=== PATIENT | male | born 1950 | race Hispanic/Latino ===

== ENCOUNTER 2022-05-25 17:48 | Emergency (ER) | payer SELFPAY ==
[2022-05-25] MEDS ORDERED: LIDOCAINE 1% W/EPI 1:100,000 10 ML VIAL ONE (18:21)
[2022-05-25] MEDS ORDERED: TETANUS & DIPHTHERIA TOX,ADULT 0.5 ML VIAL ONE (18:23)
--- NOTE | 2022-05-25 19:18 | ER ---
Nurse's Notes [facility] Name: Ariel Colunga Age: 71 yrs Sex: Male : 1950 Arrival Date: 05/25/2022 Time: 17:49 Bed 5 Private MD: Diagnosis: Laceration with foreign body of other part of head, initial encounter Presentation: 05/25 17:52 Chief complaint: left eyebrow laceration after running into trash can. Bleeding hb controlled. Negative LOC. Coronavirus screen: At this time, the client does not indicate any symptoms associated with coronavirus-19. Ebola Screen: No symptoms or risks identified at this time. Risk Assessment: Do you want to hurt yourself or someone else? Patient reports no desire to harm self or others. Onset of symptoms was May 25, 2022. 17:52 Method Of Arrival: Ambulatory hb 17:52 Acuity: JESSICA 4 hb 19:00 Complicating Factors: There are no complicating factors for this patient. Initial ke1 Sepsis Screen: Does the patient meet any 2 criteria? No. Patient's initial sepsis screen is negative. Does the patient have a suspected source of infection? No. Patient's initial sepsis screen is negative. Historical: - Allergies: 17:53 No Known Allergies; hb - Immunization history:: Adult Immunizations up to date. - Social history:: Smoking status: Patient denies any tobacco usage or history of. Screenin:00 Abuse screen: Denies threats or abuse. Nutritional screening: No deficits noted. ke1 Tuberculosis screening: No symptoms or risk factors identified. Fall Risk None identified. Assessment: 18:04 General: Appears in no apparent distress. comfortable, Behavior is calm, cooperative, mb9 appropriate for age. Pain: Denies pain. Neuro: Level of Consciousness is awake, alert, obeys commands, Oriented to person, place, time, situation, Appropriate for age Gait is steady. Cardiovascular: Heart tones S1 S2 present. Respiratory: Airway is patent Respiratory effort is even, unlabored, Respiratory pattern is regular, symmetrical. GI: Abdomen is round. : No signs and/or symptoms were reported regarding the genitourinary system. Derm: Skin laceration noted above the left eyebrow Skin is dry, Skin is normal, Skin temperature is warm Wound noted. Musculoskeletal: Range of motion: intact in all extremities. Injury Description: Laceration sustained to above left eyebrow is not bleeding. 19:14 Reassessment: report given to ALMA Joshua. mb9 Vital Signs: 17:52 BP 157 / 106; Pulse 96; Resp 16; Temp 98.9; Pulse Ox 100% on R/A; Pain 4/10; hb 19:54 BP 142 / 77; Pulse 90; Resp 19; Temp 98.6; Pulse Ox 99% ; ke1 Alana Coma Score: 18:15 Eye Response: spontaneous(4). Verbal Response: oriented(5). Motor Response: obeys cp commands(6). Total: 15. ED Course: 17:49 Patient arrived in ED. as 17:53 Triage completed. hb 17:53 Arm band placed on. hb 17:55 Cecil Zarco PA is PHCP. cp 17:55 Jose Antonio Galloway MD is Attending Physician. zarina 17:56 Zaina Fung RN is Primary Nurse. mb9 19:00 Bed in low position. Call light in reach. ke1 19:53 wound dressing. ke1 19:54 Patient did not have IV access during this emergency room visit. ke1 Administered Medications: 18:31 Drug: Tetanus Toxoid,Adsorbed 0.5 ml {Tire Stripper: [employer]. Exp: 12/29/2023. Lot mb9 #: [id number]. } Route: IM; Site: right deltoid; 19:48 Follow up: Response: No adverse reaction ke1 19:14 Drug: Lidocaine-Epinephrine -1%: (1:100,000) 10 ml Volume: 20 ml; Route: Infiltration; mb9 Medication: 19:53 VIS not applicable for this client. ke1 Outcome: 19:17 Discharge ordered by . cp 19:54 Discharged to home ambulatory. ke1 19:54 Condition: good 19:54 Discharge instructions given to patient. 19:55 Patient left the ED. ke1 Signatures: Caren Howell Corey, PA PA cp Baxter, Heather, RN RN Chaitanyamesilla valley hospitalTres leung RN RN ke1 Zaina Fung RN RN mb9
--- NOTE | 2022-05-25 19:18 | EDPHYS ---
Physician Documentation [facility] Name: Ariel Colunga Age: 71 yrs Sex: Male : 1950 Arrival Date: 05/25/2022 Time: 17:49 Bed 5 Private MD: ED Physician Jose Antonio Galloway HPI: 05/25 18:15 This 71 yrs old Male presents to ER via Ambulatory with complaints of cp Laceration - eyebrow. 18:15 The patient or guardian reports a laceration, clean. The complaints affect the left cp upper orbital ridge. 18:15 Context of injury: occurred while outside when plastic lid of garbage can accidently cp struck face. No LOC, denies headache and/or pain beside area of laceration. Onset: The symptoms/episode began/occurred just prior to arrival. Associated signs and symptoms: The patient has no apparent associated signs or symptoms. Patient denies use of blood thinners, unsure of last tetanus vaccination. Historical: - Allergies: 17:53 No Known Allergies; hb - Immunization history:: Adult Immunizations up to date. - Social history:: Smoking status: Patient denies any tobacco usage or history of. ROS: 18:20 Skin: Positive for laceration(s), of the left upper orbital ridge. cp 18:20 Constitutional: Negative for body aches, chills, fever, poor PO intake. cp 18:20 Cardiovascular: Negative for chest pain, palpitations. 18:20 Respiratory: Negative for cough, shortness of breath, wheezing. 18:20 Neuro: Negative for altered mental status, dizziness, headache, loss of consciousness, syncope, weakness. 18:20 All other systems are negative. Exam: 18:25 Constitutional: The patient appears in no acute distress, alert, awake, comfortable, cp non-toxic, well developed, well nourished. 18:25 Head/face: Noted is ecchymosis, that is mild, a laceration(s), that is deep, that is linear, of the left upper orbital ridge, swelling, that is mild, Sinus tenderness, is not appreciated. 18:25 Eyes: Pupils: equal, round, and reactive to light and accomodation, Extraocular movements: intact throughout, Conjunctiva: normal, no exudate, no injection, Lids and lashes: appear normal, bilaterally. 18:25 ENT: External ear(s): are unremarkable, Nose: is normal, Mouth: Lips: moist, Oral mucosa: pink and intact, moist, Posterior pharynx: Airway: no evidence of obstruction, patent. 18:25 Neck: C-spine: vertebral tenderness, is not appreciated, crepitus, is not appreciated, ROM/movement: is normal, is supple, without pain, no range of motions limitations. 18:25 Chest/axilla: Inspection: normal, Palpation: is normal, no crepitus, no tenderness. 18:25 Cardiovascular: Rate: normal, Rhythm: regular. 18:25 Respiratory: the patient does not display signs of respiratory distress, Respirations: normal, no use of accessory muscles, no retractions, labored breathing, is not present, Breath sounds: are clear throughout, no decreased breath sounds, no stridor, no wheezing. 18:25 Abdomen/GI: Exam negative for discomfort, distension, guarding, Inspection: abdomen appears normal. 18:25 Back: pain, is absent, ROM is normal. 18:25 Musculoskeletal/extremity: Exam is negative for decreased range of motion, deformity, injury. 18:25 Neuro: Orientation: to person, place \T\ time. Mentation: is normal, Cerebellar function: is grossly normal, Motor: moves all fours, strength is normal, Sensation: is normal, Gait: is steady, at a normal pace, without difficulty. Vital Signs: 17:52 BP 157 / 106; Pulse 96; Resp 16; Temp 98.9; Pulse Ox 100% on R/A; Pain 4/10; hb 19:54 BP 142 / 77; Pulse 90; Resp 19; Temp 98.6; Pulse Ox 99% ; ke1 Alana Coma Score: 18:15 Eye Response: spontaneous(4). Verbal Response: oriented(5). Motor Response: obeys cp commands(6). Total: 15. Laceration: 19:30 Wound Repair of 5.5cm ( 2.2in ) subcutaneous laceration to left upper orbital ridge. cp Linear shaped.. Distal neuro/vascular/tendon intact. Anesthesia: Wound infiltrated with 6 mls of 1% lidocaine w/ Epi. Wound prep: Simple cleansing by nurse. Subcutaneous tissue closed with 3 4-0 Vicryl using interrupted sutures and sterile technique. Skin closed with 11 5-0 Prolene using interrupted sutures and sterile technique. Dressed with Bacitracin. Patient tolerated well. MDM: 17:55 Patient medically screened. cp 18:30 Differential diagnosis: Contusion of Hematoma on Laceration of Intracranial bleed- cp Concussion cerebral contusion. 19:17 Data reviewed: vital signs, nurses notes. cp 19:17 Counseling: I had a detailed discussion with the patient and/or guardian regarding: the cp historical points, exam findings, and any diagnostic results supporting the discharge/admit diagnosis, the need for outpatient follow up, a family practitioner, to return to the emergency department if symptoms worsen or persist or if there are any questions or concerns that arise at home. Response to treatment: the patient's symptoms have markedly improved after treatment, and as a result, I will discharge patient. 05/25 18:03 Order name: Dressing - Wound; Complete Time: 19:48 cp 05/25 18:03 Order name: Gloves, Sterile; Complete Time: 18:06 cp 05/25 18:03 Order name: Setup Suture Tray; Complete Time: 18:06 cp 05/25 19:16 Order name: Wound dressing; Complete Time: 19:48 cp Administered Medications: 18:31 Drug: Tetanus Toxoid,Adsorbed 0.5 ml {[employer] Coordinator: [employer]. Exp: 12/29/2023. Lot mb9 #: [id number]. } Route: IM; Site: right deltoid; 19:48 Follow up: Response: No adverse reaction ke1 19:14 Drug: Lidocaine-Epinephrine -1%: (1:100,000) 10 ml Volume: 20 ml; Route: Infiltration; mb9 Disposition Summary: 05/25/22 19:17 Discharge Ordered Location: Home cp Problem: new cp Symptoms: have improved cp Condition: Stable cp Diagnosis - Laceration with foreign body of other part of head, initial encounter cp Followup: cp - With: Private Physician - When: 1 week - Reason: Staple/Suture removal Discharge Instructions: - Discharge Summary Sheet cp - Facial Laceration cp - Sutured Wound Care cp Forms: - Medication Reconciliation Form cp - Thank You Letter cp - Antibiotic Education cp - Prescription Opioid Use cp Signatures: Cecil Zarco PA PA cp Baxter, Heather, RN RN hb Ebrottie, Kouassi, RN RN ke1 Breneman, Zaina, RN RN mb9
[2022-05-25 20:06] VITALS: BP 142/77; TEMP 98.6; O2SAT 99
== END 2022-05-25 19:55 | disposition home or self-care (01) ==
LOC: ER 17:48
PROC: 0JQ10ZZ Repair Face Subcutaneous Tissue and Fascia, Open Approach (ICD-10-PCS; principal; 2022-05-25)
DX: S01.122A Laceration with foreign body of left eyelid and periocular area, initial encounter (principal); W22.8XXA Striking against or struck by other objects, initial encounter; Y93.89 Activity, other specified; Y92.9 Unspecified place or not applicable; Z23 Encounter for immunization
CPT/HCPCS: 90471; 90714; 99283

== ENCOUNTER 2022-06-03 09:38 | Emergency (ER) | payer SELFPAY ==
--- NOTE | 2022-06-03 09:57 | ER ---
Nurse's Notes [facility] Name: Ariel Colunga Age: 71 yrs Sex: Male : 1950 Arrival Date: 06/03/2022 Time: 09:39 Bed Waiting Private MD: Diagnosis: Encounter for removal of sutures Presentation: 06/03 09:47 Chief complaint: Patient states: "Its been 8-9 days since sutures have been placed" vg1 sutures placed Left eye brow, Site appears to be without redness and swelling. Pt denies pain. Coronavirus screen: Vaccine status: Patient reports receiving the 2nd dose of the covid vaccine. Client denies travel out of the [place] in the last 14 days. Ebola Screen: Patient negative for fever greater than or equal to 101.5 degrees Fahrenheit, and additional compatible Ebola Virus Disease symptoms Patient denies exposure to infectious person. Onset of symptoms was May 26, 2022. 09:47 Method Of Arrival: Ambulatory vg 09:47 Acuity: EJSSICA 5 vg1 09:54 Initial Sepsis Screen: Does the patient meet any 2 criteria? No. Patient's initial vg1 sepsis screen is negative. Does the patient have a suspected source of infection? No. Patient's initial sepsis screen is negative. Risk Assessment: Do you want to hurt yourself or someone else?. Triage Assessment: 09:47 General: Appears in no apparent distress. comfortable, Behavior is calm, cooperative. vg1 Pain: Denies pain. - Immunization history:: Client reports receiving the 2nd dose of the Covid vaccine. Screenin:49 Abuse screen: Denies threats or abuse. Nutritional screening: No deficits noted. vg1 Tuberculosis screening: No symptoms or risk factors identified. Fall Risk No fall in past 12 months (0 pts). No secondary diagnosis (0 pts). No IV (0 pts). Ambulatory Aid- None/Bed Rest/Nurse Assist (0 pts). Gait- Normal/Bed Rest/Wheelchair (0 pts) Mental Status- Oriented to own ability (0 pts). Total Cerda Fall Scale indicates No Risk (0-24 pts). Assessment: 09:49 Reassessment: Monique CHEMICAL PREPARER in triage removing pt sutures. vg1 Vital Signs: 09:51 BP 164 / 73; Pulse 66; Resp 15; Temp 97.7(TE); Pulse Ox 100% ; vg1 ED Course: 09:39 Patient arrived in ED. am2 09:40 [facility] jh7 09:40 Yo Ibanez MD is Attending Physician. jh7 09:47 Arm band placed on. vg1 09:49 Triage completed. vg1 09:49 Patient has correct armband on for positive identification. vg1 09:49 No provider procedures requiring assistance completed. Patient did not have IV access vg1 during this emergency room visit. Administered Medications: No medications were administered Medication: 09:49 VIS not applicable for this client. vg1 Outcome: 09:49 No charge visit due to suture removal. vg1 09:56 Discharge ordered by . jh7 09:58 Discharged to home ambulatory. vg1 09:58 Condition: good 09:58 Discharge instructions given to patient, Instructed on discharge instructions, follow up and referral plans. Demonstrated understanding of instructions, follow-up care. 09:59 Patient left the ED. vg1 Signatures: Olive Patricio am2 Debra Palomino, RN RN vg1 Marcy Amaya FNP FNP [facility]
--- NOTE | 2022-06-03 09:57 | EDPHYS ---
Physician Documentation [facility] Name: Ariel Colunga Age: 71 yrs Sex: Male : 1950 Arrival Date: 06/03/2022 Time: 09:39 Bed Waiting Private MD: ED Physician Yo Ibanez HPI: 06/03 09:50 This 71 yrs old Male presents to ER via Ambulatory with complaints of Suture jh7 Removal. 09:50 The patient has sutures on the face. Previous treatment: The patient was initially jh7 treated 9 day(s) ago. Sutures/jayda progress: The patient has no c/o's. The wound is well-healing with no redness, swelling, discharge, or dehiscence reported. - Immunization history:: Client reports receiving the 2nd dose of the Covid vaccine. ROS: 09:50 Constitutional: Negative for fever, chills, and weight loss, Eyes: Negative for injury, jh7 pain, redness, and discharge, Cardiovascular: Negative for chest pain, palpitations, and edema, Respiratory: Negative for shortness of breath, cough, wheezing, and pleuritic chest pain, MS/Extremity: Negative for injury and deformity, Neuro: Negative for headache, weakness, numbness, tingling, and seizure. 09:50 Skin: Positive for laceration(s), sutures in place. 09:50 All other systems are negative. Exam: 09:50 Constitutional: This is a well developed, well nourished patient who is awake, alert, jh7 and in no acute distress. Cardiovascular: Regular rate and rhythm with a normal S1 and S2. No gallops, murmurs, or rubs. Normal PMI, no JVD. No pulse deficits. Respiratory: Lungs have equal breath sounds bilaterally, clear to auscultation and percussion. No rales, rhonchi or wheezes noted. No increased work of breathing, no retractions or nasal flaring. MS/ Extremity: Pulses equal, no cyanosis. Neurovascular intact. Full, normal range of motion. Neuro: Awake and alert, GCS 15, oriented to person, place, time, and situation. Motor strength 5/5 in all extremities. Sensory grossly intact. Normal gait. 09:50 Skin: 11 intact sutures present over 4 cm L eyebrow laceration. The area is healing appropriately.. Vital Signs: 09:51 BP 164 / 73; Pulse 66; Resp 15; Temp 97.7(TE); Pulse Ox 100% ; vg1 Procedures: 09:50 Suture/Staple removal: Removed 11 sutures, from face, site appears well healed, Patient jh7 tolerated well. MDM: 09:40 Patient medically screened. 7 09:50 Data reviewed: vital signs, nurses notes. Data interpreted: Pulse oximetry: is 100 %. jh7 Interpretation: normal. Counseling: I had a detailed discussion with the patient and/or guardian regarding: the historical points, exam findings, and any diagnostic results supporting the discharge/admit diagnosis, to return to the emergency department if symptoms worsen or persist or if there are any questions or concerns that arise at home. Administered Medications: No medications were administered Disposition: 18:54 Co-signature as Attending Physician, Yo Ibanez MD. rn Disposition Summary: 06/03/22 09:56 Discharge Ordered Location: Home [facility] Problem: new [facility] Symptoms: are resolved [facility] Condition: Stable 7 Diagnosis - Encounter for removal of sutures [facility] Followup: [facility] - With: Private Physician - When: As needed - Reason: Discharge Instructions: - Discharge Summary Sheet [facility] - Suture Removal, Care After 7 Forms: - Medication Reconciliation Form [facility] - Thank You Letter [facility] Signatures: Yo Ibanez MD MD rn Garcia, Victoria, RN RN [facility] Marcy Amaya FNP FNP [facility]
[2022-06-03 10:03] VITALS: BP 164/73; TEMP 97.7; O2SAT 100
== END 2022-06-03 09:59 | disposition home or self-care (01) ==
LOC: ER 09:38
DX: Z48.02 Encounter for removal of sutures (principal)